=== PATIENT | male | born 1960 | race Caucasian/White ===

== ENCOUNTER 2024-07-12 02:07 | Inpatient (IN) | payer OTHER ==
[~2024-07-12] VITALS: Ht 177.8 cm; Wt 78.5 kg
[2024-07-12] VITALS (11 sets, daily range): BP systolic 107–146; BP diastolic 48–76; PULSE 77–107; RESP 16–28; TEMP 36.5848–39.50316; O2SAT 95–99
[~2024-07-12 02:07] MED LIST: ATOR40TA70 PO; CALC0.253 PO; FAMO-135 MT; HYDR50TA39 PO; LOSA100T33 PO; METO-539 PO; NIFE-32 PO; PANT40TA51 PO; SILD20TA13 PO; TERA5CAP4 PO
[2024-07-12 03:06] LABS: BASOPHILS % 0.3 % (0.0-2.0); EOSINOPHILS % 0.8 % (0.0-5.0); HEMATOCRIT. 25.5 % (42.0-52.0); HEMOGLOBIN. 8.5 g/dL (14.0-18.0); LYMPHOCYTES % 15.9 % (20.0-50.0); MEAN CORPUSCULAR HEMOGLOBIN 30.6 pg (28.0-32.0); MEAN CORPUSCULAR HGB CONC 33.5 g/dL (31.0-37.0); MEAN CORPUSCULAR VOLUME 91.6 fL (80.0-94.0); MEAN PLATELET VOLUME 7.2 fl (7.4-10.4); MONOCYTES % 11.7 % (2.0-8.0); NEUTROPHILS % 71.3 % (40.0-76.0); PLATELET 173 x1000/uL (130-400); RED BLOOD CELL COUNT 2.78 mill/uL (4.7-6.1); RED CELL DISTRIBUTION WIDTH 19.3 % (11.6-14.6); WHITE BLOOD COUNT 9.1 x1000/uL (4.5-11.0)
[2024-07-12 03:21] LABS: INR 1.2; PARTIAL THROMBOPLASTIN TIME 31.9 sec (23.4-31.0); PROTHROMBIN TIME 12.8 sec (9.6-11.0)
[2024-07-12] MEDS: ONDANSETRON HCL 4MG/2ML INJ IV ONE (03:23)
[2024-07-12] MEDS: ACETAMINOPHEN 1000MG/100ML 100 ML IV ONE (03:23)
[2024-07-12 03:44] LABS: CHLORIDE 98 mEq/L (98-107); SODIUM 134 mEq/L (136-145)
[2024-07-12 03:45] LABS: CALCIUM 8.9 mg/dL (8.7-10.4); CARBON DIOXIDE 30 mEq/L (21-32)
[2024-07-12 03:50] LABS: GLUCOSE 109 mg/dL (70-105); TROPONIN I HIGH SENSITIVITY 25 ng/L (3.0-53); UREA NITROGEN BLOOD 44 mg/dL (9-23)
[2024-07-12 04:37] LABS: ETHANOL BLOOD < 10 mg/dL (<10)
[2024-07-12 04:39] LABS: CREATININE 5.1 mg/dL (0.6-1.3)
[2024-07-12] MEDS: GUAIFENESIN 200MG/10ML SUGAR FREE UDC PO PRN (18:48)
[2024-07-12] MEDS: ONDANSETRON HCL 4MG TABLET PO PRN (18:49)
[2024-07-12] MEDS: ACETAMINOPHEN 325MG TABLET PO PRN (18:49)
[2024-07-12] MEDS ORDERED: ONDANSETRON HCL 4MG/2ML INJ IV PRN (20:00)
[2024-07-12] MEDS ORDERED: ACETAMINOPHEN 325MG TABLET PO PRN (20:00)
[2024-07-12] MEDS ORDERED: DEXTROSE 50% WATER 50ML SYRINGE IV PRN ×2 (20:00→20:15)
[2024-07-12] MEDS ORDERED: MEROPENEM 1,000 MG in SODIUM CHLORIDE 0.9% 100 ML IV SCH (20:00)
[2024-07-12] MEDS ORDERED: IPRATROPIUM/ALBUTEROL 0.5-3(2.5)MG/3ML NEB HHN PRN (20:30)
[2024-07-12] MEDS: INSULIN LISPRO 100 UNITS/ML SUBCUT SCH (21:00)
[2024-07-12] MEDS ORDERED: BLOOD SUGAR DIAGNOSTIC STRIP TEST SCH (21:00)
[2024-07-12] MEDS: BLOOD SUGAR DIAGNOSTIC STRIP TEST SCH (21:22)
[2024-07-12] MEDS: MEROPENEM 500MG/50ML 50 ML IV SCH (21:32)
[2024-07-12] MEDS: VANCOMYCIN 1.5GM/250ML 250 ML IV NR (22:23)
[2024-07-12] MEDS: SODIUM CHLORIDE 0.9% 3ML FLUSH IVF SCH (22:25)
[2024-07-13] VITALS (12 sets, daily range): BP systolic 118–145; BP diastolic 47–63; PULSE 70–77; RESP 15–28; TEMP 36.33624–37.55856; O2SAT 90–100
[2024-07-13 10:47] LABS: AMMONIA < 17 uMol/L (<32)
[2024-07-13] MEDS: DIPHENHYDRAMINE 50MG/ML VIAL IV PRN (21:41)
[2024-07-13] MEDS: ACETAMINOPHEN 325MG TABLET PO PRN (22:33)
[2024-07-14] VITALS (19 sets, daily range): BP systolic 110–146; BP diastolic 50–72; PULSE 66–72; RESP 16–35; TEMP 36.16956–37.00296; O2SAT 89–100
[2024-07-14 05:51] LABS: BASOPHILS % 0.4 % (0.0-2.0); EOSINOPHILS % 3.7 % (0.0-5.0); HEMATOCRIT. 24.2 % (42.0-52.0); HEMOGLOBIN. 8.1 g/dL (14.0-18.0); LYMPHOCYTES % 9.4 % (20.0-50.0); MEAN CORPUSCULAR HEMOGLOBIN 30.1 pg (28.0-32.0); MEAN CORPUSCULAR HGB CONC 33.4 g/dL (31.0-37.0); MEAN CORPUSCULAR VOLUME 90.3 fL (80.0-94.0); MONOCYTES % 6.5 % (2.0-8.0); PLATELET 145 x1000/uL (130-400); RED BLOOD CELL COUNT 2.68 mill/uL (4.7-6.1); RED CELL DISTRIBUTION WIDTH 18.2 % (11.6-14.6); WHITE BLOOD COUNT 11.1 x1000/uL (4.5-11.0)
[2024-07-14 06:14] LABS: POTASSIUM 5.4 mEq/L (3.5-5.1)
[2024-07-14 06:15] LABS: CALCIUM 8.7 mg/dL (8.7-10.4)
[2024-07-14] MEDS ORDERED: LIDOCAINE HCL 1% 10 MG/ML 10ML VIAL ONE (13:42)
[2024-07-14 14:17] LABS: BODY FLUID RBC 6900 /cu mm (0-2000); BODY FLUID WBC 330 /cu mm (0-200)
[2024-07-14 14:29] LABS: BODY FLUID MONOCYTES 3 %
[2024-07-14] MEDS: VANCOMYCIN 750MG PMX (XELLIA) 150 ML IV SCH (18:13)
[2024-07-14] MEDS ORDERED: MEROPENEM 500MG/50ML 50 ML IV SCH (21:00)
[2024-07-15] VITALS (8 sets, daily range): BP systolic 100–162; BP diastolic 45–68; PULSE 54–72; RESP 18–26; TEMP 36.28068–37.61412; O2SAT 87–99
[2024-07-15 09:09] LABS: BASOPHILS % 0.5 % (0.0-2.0); EOSINOPHILS % 3.2 % (0.0-5.0); HEMATOCRIT. 24.7 % (42.0-52.0); HEMOGLOBIN. 8.2 g/dL (14.0-18.0); LYMPHOCYTES % 15.3 % (20.0-50.0); MEAN CORPUSCULAR HEMOGLOBIN 30.5 pg (28.0-32.0); MEAN CORPUSCULAR HGB CONC 33.3 g/dL (31.0-37.0); MEAN CORPUSCULAR VOLUME 91.6 fL (80.0-94.0); MEAN PLATELET VOLUME 8.6 fl (7.4-10.4); MONOCYTES % 8.6 % (2.0-8.0); NEUTROPHILS % 72.4 % (40.0-76.0); PLATELET 147 x1000/uL (130-400); RED CELL DISTRIBUTION WIDTH 18.4 % (11.6-14.6)
[2024-07-15] MEDS ORDERED: LIDOCAINE 2% 6ML GLYDO MM ONE (14:28)
[2024-07-15] MEDS ORDERED: TETRACAINE/BENZOCAINE/BUTAMBEN 20 GM SPRAY MM ONE (14:28)
[2024-07-15] MEDS ORDERED: NALOXONE HCL 0.4MG/ML VIAL IV PRN (14:30)
[2024-07-15] MEDS ORDERED: MIDAZOLAM HCL 5 MG/5 ML VIAL ONE (15:07)
[2024-07-15] MEDS ORDERED: FENTANYL CITRATE/PF 50MCG/ML 2ML VIAL ONE (15:07)
[2024-07-15] MEDS: TRAMADOL 50MG TABLET PO PRN (21:30)
[2024-07-16] VITALS (15 sets, daily range): BP systolic 124–167; BP diastolic 41–76; PULSE 66–84; RESP 16–25; TEMP 36.22512–36.9474; O2SAT 94–100
[2024-07-16] MEDS: PANTOPRAZOLE 40MG DR TABLET PO SCH (06:07)
[2024-07-16] MEDS: VANCOMYCIN 500MG/100ML IV NR (18:15)
[2024-07-16] MEDS: CLONIDINE 0.1MG TABLET PO PRN (20:05)
== END 2024-07-16 22:20 | disposition home or self-care (01) | DRG 720 ==
LOC: ER 02:07 → 5EST 05:22 → EDBEDREQTM 05:33 → EDBEDREQSVC 05:33 → EDBEDREQ 05:33 → 3WST 07-15 08:15
PROVIDERS: ADMIT Internal Medicine; ATTEND Internal Medicine
PROC: 5A09357 Assistance with Respiratory Ventilation, Less than 24 Consecutive Hours, Continuous Positive Airway Pressure (ICD-10-PCS; 2024-07-12)
PROC: 0W9G3ZZ Drainage of Peritoneal Cavity, Percutaneous Approach (ICD-10-PCS; principal; 2024-07-14)
PROC: 5A1D70Z Performance of Urinary Filtration, Intermittent, Less than 6 Hours Per Day (ICD-10-PCS; 2024-07-14)
PROC: B24BZZ4 Ultrasonography of Heart with Aorta, Transesophageal (ICD-10-PCS; 2024-07-15)
PROC: 5A1D70Z Performance of Urinary Filtration, Intermittent, Less than 6 Hours Per Day (ICD-10-PCS; 2024-07-16)
DX: A41.02 Sepsis due to Methicillin resistant Staphylococcus aureus (principal); G93.41 Metabolic encephalopathy; I12.0 Hypertensive chronic kidney disease with stage 5 chronic kidney disease or end stage renal disease; R18.8 Other ascites; N18.6 End stage renal disease; E11.22 Type 2 diabetes mellitus with diabetic chronic kidney disease; G90.89 Other disorders of autonomic nervous system; G47.30 Sleep apnea, unspecified; M54.50 Low back pain, unspecified; K21.9 Gastro-esophageal reflux disease without esophagitis; K74.60 Unspecified cirrhosis of liver; E78.00 Pure hypercholesterolemia, unspecified; Z99.2 Dependence on renal dialysis; Z79.899 Other long term (current) drug therapy; I25.2 Old myocardial infarction; Z83.3 Family history of diabetes mellitus; Z86.73 Personal history of transient ischemic attack (TIA), and cerebral infarction without residual deficits
CPT/HCPCS: 36415; 49083; 71045; 74176; 80048; 80202; 80320; 82140; 82962; 83036; 83880; 84484; 85025; 85651; 87077; 87186; 87493; 90935; 93005; 93306; 93312; 94070; 94660; 99285; A4606; A4663; J1200; J1815; J2003; J2185; J2250; J2405; J3010; J3370; Q0162; G0480; J0131